=== PATIENT | female | born 1950 | race Caucasian/White ===

== ENCOUNTER 2019-05-03 15:27 | Emergency (ER) | payer MEDICARE, BC ==
[2019-05-03] MEDS ORDERED: SODIUM CHLORIDE 0.9% FLUSH 10 ML SOL IV PRN (15:51)
[2019-05-03] MEDS ORDERED: LACTATED RINGERS 1,000 ML IV ONE (15:52)
[2019-05-03] MEDS ORDERED: LORAZEPAM 0.5 MG TAB PO ONE (15:52)
[2019-05-03 15:58] LABS: BASOPHILS % (AUTO) 1 % (0-3); EOSINOPHILS % (AUTO) 2 % (0-9); HEMATOCRIT 44 % (35-47); HEMOGLOBIN 14.8 gm/dl (12.0-15.5); LYMPHOCYTES % (AUTO) 40.4 % (10-50); MEAN CORPUSCULAR HEMOGLOBIN 31.4 pg (27.0-32.0); MEAN CORPUSCULAR HGB CONC 33.6 gm/dl (32.0-36.0); MEAN CORPUSCULAR VOLUME 93 fL (81-99); MONOCYTES % (AUTO) 6.6 % (0-12); NEUTROPHILS % (AUTO) 50.2 % (37-80)
[2019-05-03] MEDS ORDERED: LORAZEPAM 0.5 MG TAB ONE (16:08)
[2019-05-03 16:16] LABS: ALBUMIN 3.7 gm/dl (3.4-5.0); ALKALINE PHOSPHATASE 70 IU/L (46-116); ALT 19 IU/L (14-63); AST 11 IU/L (15-37); BILIRUBIN,TOTAL 0.3 mg/dl (0.2-1.0); BLOOD UREA NITROGEN 37 mg/dl (7-18); CARBON DIOXIDE 22.9 mEq/L (21-32); CHLORIDE 103 mMol/L (98-107); CREATINE KINASE 98 U/L (26-192); CREATININE 1.43 mg/dl (0.60-1.00); GLUCOSE 124 mg/dl (74-106); POTASSIUM 4.3 mMol/L (3.5-5.1); SODIUM 137 mMol/L (136-145); TOTAL PROTEIN 7.6 gm/dl (6.4-8.2); TROP I < 0.017 ng/ml (0.000-0.056)
[2019-05-03 16:34] VITALS: O2SAT 95
[2019-05-03 17:23] VITALS: BP 115/79; PULSE 102; RESP 14; TEMP 97.6
== END 2019-05-03 17:39 | disposition home or self-care (01) | DRG 684 ==
LOC: ED 15:27
DX: N17.9 Acute kidney failure, unspecified (principal); I48.2 Chronic atrial fibrillation; R42 Dizziness and giddiness; R06.02 Shortness of breath; E11.9 Type 2 diabetes mellitus without complications
CPT/HCPCS: 71045; 80053; 82550; 84484; 85025; 93005; 96365; 99284; 99285; A9270-GY